=== PATIENT | female | born 1990 | race Caucasian/White ===

== ENCOUNTER → 2016-10-08 | Outpatient (CLI) | payer MEDICAID ==
--- NOTE | 2016-10-08 11:19 | US ---
EXAMINATION TYPE: US thyroid st tissue head/neck DATE OF EXAM: 10/08/2016 7:51 AM COMPARISON: NONE CLINICAL HISTORY: iodine deficiency, diffuse goiter. GLAND SIZE: Right Lobe: 4.9 x 1.1 x 1.5 cm Overall Parenchyma: homogenous Left Lobe: 4.5 x 1.1 x 1.3 cm Overall Parenchyma: homogeneous Isthmus Thickness: 0.2 cm NODULES RIGHT: # of nodules measured on right: 0 LEFT: # of nodules measured on left: 0 ISTHMUS: # of nodules measured in the isthmus: 0 TECHNOLOGIST IMPRESSION: Bilateral neck scanned, no abnormal lymphadenopathy noted. Thyroid gland is normal in size and homogeneous in echotexture without evidence of suspicious solid o r cystic nodule. IMPRESSION: Unremarkable study.
== END | disposition home or self-care (01) ==
LOC: RADUSWWP 07:36
PROVIDERS: ATTEND Family Medicine
DX: E01.0 Iodine-deficiency related diffuse (endemic) goiter (principal)
CPT/HCPCS: 76536

== ENCOUNTER → 2017-08-11 | Outpatient (CLI) | payer MEDICAID ==
[2017-08-11 09:24] LABS: CH 29.4; CHCM 34.5; HCT 41.3 % (34.0-46.0); HDW 2.43; MCH 29.1 pg (25.0-35.0); MCV 85.5 fL (80.0-100.0); RBC 4.83 m/uL (3.80-5.40); WBC 7.5 k/uL (3.8-10.6)
[2017-08-11 09:37] LABS: Glucose 91 mg/dL (74-99); Non-African American GFR(MDRD) >60 (>60 ml/min/1.73 sqM)
[2017-08-11 15:50] LABS: Treponemal Ab Non-Reactive (Non-Reactive)
[2017-08-12 06:54] LABS: Toxoplasma Antibody (IgG) <3.0 IU/mL (<7.2)
== END | disposition home or self-care (01) ==
LOC: LABWHC1 08:26
PROVIDERS: ATTEND Obstetrics & Gynecology
DX: Z34.81 Encounter for supervision of other normal pregnancy, first trimester (principal); Z3A.00 Weeks of gestation of pregnancy not specified
CPT/HCPCS: 36415; 82565; 82947; 85027; 86762; 86777; 86778; 86780; 86850; 86900; 86901; 87340

== ENCOUNTER → 2017-08-14 | Outpatient (CLI) | payer MEDICAID ==
--- NOTE | 2017-08-14 14:04 | US ---
EXAMINATION TYPE: US OB <= 14 wk fetus DATE OF EXAM: 08/14/2017 COMPARISON: NONE CLINICAL HISTORY: 27-year-old female Z36 Comfirm Dates. Patient has no complaints at this time. EXAM PERFORMED: Transabdominal (TA) FINDINGS: EXAM MEASUREMENTS: GESTATIONAL AGE / DATING Physician Established: (9 weeks/4 days) EDC: 03/15/2018 Dates by LMP: (9 weeks/4 days) EDC: 03/15/2018 Dates by First Scan: No prior Dates by Current Scan for: (9 weeks/6 days) EDC: 03/13/2018 MATERNAL ANATOMY Uterus: 10.1 x 5.8 x 7.8 cm Right Ovary: 2.3 x 1.1 x 2.2 cm Left Ovary: 2.5 x 2.5 x 2.9 cm Post CDS / Adnexa: wnl Presence of free fluid: No Presence of corpus luteal cyst: Left Ovary= 1.9 x 1.8 x 1.8 cm Presence of subchorionic bleed: No GESTATION / SURVEY CRL: 2.9 cm (9 weeks/6 days) MSD: wnl Yolk Sac (normal less than 6mm): 3mm Heart Rate: 165 bpm Rhythm: Normal IUP: Viable IUP SATELLITE DISH INSTALLER NOTES: Single, viable IUP/ No abnormality seen at this time IMPRESSION: 1. Single live intrauterine with estimated gestational age of 9 weeks 4 days by LMP. Curren t ultrasound biometry is concordant (9 weeks 6 days) by crown rump length. 2. Complete survey recommended at 18-20 weeks.
== END | disposition home or self-care (01) ==
LOC: RADUSWWP 13:32
PROVIDERS: ATTEND Obstetrics & Gynecology
DX: Z36.9 Encounter for antenatal screening, unspecified (principal); Z3A.09 9 weeks gestation of pregnancy
CPT/HCPCS: 76801

== ENCOUNTER → 2017-10-19 | Outpatient (CLI) | payer MEDICAID ==
--- NOTE | 2017-10-19 10:41 | US ---
EXAMINATION TYPE: US OB anatomy trans abd DATE OF EXAM: 10/19/2017 COMPARISON: 2017 HISTORY: O36.62X0 LARGE FOR DATES TECHNIQUE: Transabdominal (TA) EXAM MEASUREMENTS: GESTATIONAL AGE / DATING Physician Established: (18 weeks/6 days) EDC: 03/16/2018 Dates by LMP: (18 weeks/6 days) EDC: 03/16/2018 Dates by First Scan: (19 weeks/1 days) EDC: 03/14/2018 Dates by Current Scan for: (18 weeks/4 days) EDC: 03/18/2018 SURVEY IUP: Single PLACENTA: Anterior PREVIA: No previa ADAN: 11 cm Normal CERVICAL LENGTH (transabdominal: norm > 3.0cm): 3.4 cm BIOMETRY PRESENTATION: Breech LIE: Longitudinal BPD: 4.2 cm 18 weeks / 4 days HC: 15.7 cm 18 weeks / 4 days AC: 13.3 cm 18 weeks / 5 days FL: 2.8 cm 18 weeks / 4 days ESTIMATED WEIGHT IN GRAMS: 252 grams ESTIMATED WEIGHT IN LBS/OZ: 0 lbs. 9 oz. WEIGHT PERCENTAGE BASED ON ESTABLISHED DATE: 36 % HC/AC: 1.2 Normal FL/AC: 21 Normal HEART RATE: 158 bpm RHYTHM: Normal ANATOMY SEEN (within normal limits): * Lateral Vent (< 1 cm) 0.6 cm * Cisterna Magna (< 1.1 cm) 0.4 cm * Nuchal Fold (< 0.6 cm) 0.2 cm * Cerebellum (varies with age) 1.8 cm Choroid Plexus (bilateral) Midline Falx Cavus Septi Pellucidi Four Chamber Heart Outflow tracts: LVOT/RVOT Stomach Situs Nose / Lips Diaphragm Kidneys (bilateral) Bladder Cord Insert Three Vessel Cord Longitudinal Spine Transverse Spine Arms (bilateral) Legs (bilateral) Impressions: 1. Single intrauterine gestation estimated at 18 4 days gestation. Cardiac activity measures 158 bpm. Calculated EDC based on the current measurements is 03/18/2018.
== END | disposition home or self-care (01) ==
LOC: RADUSWWP 08:24
PROVIDERS: ATTEND Obstetrics & Gynecology
DX: O36.62X0 Maternal care for excessive fetal growth, second trimester, not applicable or unspecified (principal); Z3A.18 18 weeks gestation of pregnancy
CPT/HCPCS: 76811

== ENCOUNTER → 2017-12-04 | Outpatient (CLI) | payer MEDICAID ==
[2017-12-04 12:08] LABS: HCT 36.2 % (34.0-46.0); HGB 12.6 gm/dL (11.4-16.0); MCH 29.8 pg (25.0-35.0); MCHC 34.9 g/dL (31.0-37.0); MCV 85.5 fL (80.0-100.0); Platelet Count 206 k/uL (150-450); RBC 4.24 m/uL (3.80-5.40); RDW 13.8 % (11.5-15.5); WBC 8.5 k/uL (3.8-10.6)
== END | disposition home or self-care (01) ==
LOC: LABWHC1 10:43
PROVIDERS: ATTEND Obstetrics & Gynecology
DX: Z34.82 Encounter for supervision of other normal pregnancy, second trimester (principal); Z3A.00 Weeks of gestation of pregnancy not specified
CPT/HCPCS: 36415; 82950; 85027

== ENCOUNTER → 2018-02-10 | Outpatient (CLI) | payer MEDICAID ==
--- NOTE | 2018-02-10 10:33 | US ---
EXAMINATION TYPE: US OB anatomy transabd DATE OF EXAM: 02/10/2018 COMPARISON: US HISTORY: O36.63X0 large for dates 3rd trimester TECHNIQUE: Transvaginal (TV) and Transabdominal (TA) EXAM MEASUREMENTS: GESTATIONAL AGE / DATING Physician Established: (35 weeks/2 days) EDC: 03/15/2018 per patient HX today Dates by LMP: (35 weeks/1 day) EDC: 03/16/2018 Dates by First Scan: (35 weeks/3 days) EDC: 03/14/2018 Dates by Current Scan for: (34 weeks/4 days) EDC: 03/20/2018 SURVEY IUP: Single PLACENTA: Anterior; superior placental anechoic oval area could be venous castillo or fenestration and si ze = 1.2 x x1.0 x 0.9cm PREVIA: No previa ADAN: 30.4 cm Normal CERVICAL LENGTH (transabdominal: norm > 3.0cm): 3.5 cm BIOMETRY PRESENTATION: Vertex LIE: Longitudinal BPD: 8.4 cm 33 weeks / 6 days HC: 31.3 cm 35 weeks / 0 days AC: 30.4 cm 34 weeks / 2 days FL: 6.8 cm 34 weeks / 6 days ESTIMATED WEIGHT IN GRAMS: 2446.0 grams ESTIMATED WEIGHT IN LBS/OZ: 5 lbs. 13 oz. WEIGHT PERCENTAGE BASED ON ESTABLISHED DATE: 26.5 % HC/AC: 1.0 normal FL/AC: 22.3 normal HEART RATE: 152 bpm RHYTHM: Normal ANATOMY SEEN (within normal limits): * Lateral Vent (< 1 cm) 0.7 cm Choroid Plexus (bilateral) Midline Falx Cavus Septi Pellucidi Four Chamber Heart Outflow tracts: LVOT/RVOT Stomach Situs Diaphragm Kidneys (bilateral) Bladder Three Vessel Cord Arms (bilateral) ANATOMY NOT SEEN: due to age of gestation and position * Cisterna Magna (< 1.1 cm) not seen * Nuchal Fold (< 0.6 cm) cm * Cerebellum (varies with age) cm Nose / Lips Cord Insert Longitudinal Spine: S Spine due to location at maternal ribs Transverse Spine: S Spine due to location at maternal ribs Legs (bilateral) - opposite leg not seen due to crowding IMPRESSION:Single, live IUP,34 weeks/4 days, EDC: 03/20/2018, HR 152bpm
== END | disposition home or self-care (01) ==
LOC: RADUSWWP 08:15
PROVIDERS: ATTEND Obstetrics & Gynecology
DX: O36.63X0 Maternal care for excessive fetal growth, third trimester, not applicable or unspecified (principal); Z3A.34 34 weeks gestation of pregnancy
CPT/HCPCS: 76811

== ENCOUNTER 2018-03-13 19:50 | Inpatient (IN) | payer MEDICAID ==
[2018-03-13] MEDS ORDERED: TERBUTALINE 1 MG/ML VIAL SQ PRN (20:16)
[2018-03-13] MEDS ORDERED: LIDOCAINE 1% (PF) 10 MG/ML (30 ML SDV) SQ PRN (20:16)
[2018-03-13] MEDS ORDERED: CARBOPROST TROMETHAMINE 250 MCG/ML 1 ML AMP IM PRN (20:16)
[2018-03-13] MEDS ORDERED: METHYLERGONOVINE 0.2 MG/ML 1 ML AMP IM PRN (20:16)
[2018-03-13] MEDS ORDERED: OXYTOCIN 10 UNIT/ML 1 ML VIAL IM PRN (20:16)
[2018-03-13] MEDS ORDERED: LACTATED RINGERS 1,000 ML IV SCH (20:30)
[2018-03-13 20:31] LABS: Basophils % (A) 0 %; Eosinophils # (A) 0.2 k/uL (0-0.7); Eosinophils % (A) 2 %; HGB 14.8 gm/dL (11.4-16.0); Lymphocytes # (A) 1.7 k/uL (1.0-4.8); Lymphocytes % (A) 17 %; MCH 29.7 pg (25.0-35.0); MCHC 35.3 g/dL (31.0-37.0); MCV 84.3 fL (80.0-100.0); Mean Platelet Volume 8.2; Monocytes # (A) 0.6 k/uL (0-1.0); Monocytes % (A) 6 %; Neutrophils # (A) 7.5 k/uL (1.3-7.7); Neutrophils % (A) 73 %; Platelet Count 187 k/uL (150-450); RBC 4.98 m/uL (3.80-5.40); RDW 13.8 % (11.5-15.5); WBC 10.3 k/uL (3.8-10.6)
[2018-03-13] MEDS ORDERED: fentaNYL (PF) 50 MCG/ML 5 ML AMP ONE (20:36)
[2018-03-13] MEDS ORDERED: BUPIVACAINE (PF) 0.25% 30 ML VIAL ONE (20:36)
[2018-03-13] MEDS ORDERED: SODIUM CHLORIDE 0.9% 100 ML BAG ONE (20:36)
[2018-03-13] MEDS ORDERED: ROPIVACAINE 100 MG, fentaNYL (PF) 200 MCG in SODIUM CHLORIDE 0.9% 76 ML EPIDURAL ONE (20:55)
[2018-03-13] MEDS: LACTATED RINGERS 1,000 ML IV SCH (21:20)
[2018-03-13] MEDS ORDERED: WITCH HAZEL 1 EACH MED..PAD TOPICAL PRN (23:21)
[2018-03-13] MEDS ORDERED: diphenhydrAMINE 50 MG CAP PO PRN (23:21)
[2018-03-13] MEDS ORDERED: HYDROCORTISONE 2.5% RECTAL CREAM 30 GM TUBE RECTAL PRN (23:21)
[2018-03-13] MEDS ORDERED: LANOLIN CREAM 5 GM TUBE TOPICAL PRN (23:21)
[2018-03-13] MEDS ORDERED: BENZOCAINE/MENTHOL SPRAY 1 GM/SPRAY AEROSOL TOPICAL PRN (23:21)
[2018-03-13] MEDS ORDERED: diphenhydrAMINE 25 MG CAP PO PRN (23:21)
[2018-03-13] MEDS ORDERED: diphenhydrAMINE 50 MG/ML 1 ML VIAL IVP PRN ×2 (23:21)
[2018-03-13] MEDS ORDERED: SIMETHICONE 80 MG CHEWABLE PO PRN (23:21)
[2018-03-13] MEDS ORDERED: ZOLPIDEM 5 MG TAB PO PRN (23:21)
--- NOTE | 2018-03-13 23:24 | P.HPOB ---
History of Present Illness H&P Date: 03/13/18 Chief Complaint: Intrauterine at term: Active labor Syeda is a 27-year-old at 39 weeks gestation arise in active labor. Dilated to 6 cm. Artificial rupture membranes was performed and clear fluid is noted. Her Precis course otherwise has been unremarkable and she is feeling well at this time. Pertinent labs include O+ blood type Rh and it was negative , rubella immune, hepatitis B surface antigen and RPR were both negative as was groupie strep area she voices no complaints heart tones are in the 1 reason reactive and she shows a category 1 tracing Past Medical History Past Medical History: Thyroid Disorder Additional Past Medical History / Comment(s): hypothyroid- not medicated History of Any Multi-Drug Resistant Organisms: None Reported Past Surgical History: Tonsillectomy Past Anesthesia/Blood Transfusion Reactions: No Reported Reaction Past Psychological History: Anxiety Additional Psychological History / Comment(s): not currently medicated Smoking Status: Never smoker Past Alcohol Use History: None Reported Past Drug Use History: None Reported - Past Family History Mother Family Medical History: No Reported History Medications and Allergies Home Medications Medication Instructions Recorded Confirmed Type Pnv,Calcium 72/Iron/Folic Acid 1 tab PO DAILY 05/20/15 03/13/18 History [ Plus Tablet] Allergies Allergy/AdvReac Type Severity Reaction Status Date / Time No Known Allergies Allergy Verified 03/13/18 20:16 Exam Osteopathic Statement: *. No significant issues noted on an osteopathic structural exam other than those noted in the History and Physical/Consult. - Vital Signs Vital signs: Vital Signs Temp Pulse Resp BP Pulse Ox 03/13/18 20:24 97.2 F L 76 16 125/83 96 03/13/18 20:08 97.2 F L 76 16 125/83 96 Intake and Output 03/13/18 03/13/18 03/14/18 14:59 22:59 06:59 Intake Total 1000 Output Total 50 Balance 950 Intake: Intake, IV Titration 1000 Amount Lactated Ringers 1,000 ml 1000 @ 999 mls/hr IV .Q1H1M [facility] Rx#:[id number] Output: Urine 50 Other: Weight 83.007 kg - OBG Physical Exam Breast: both: normal (no masses) Abdomen: bowel sounds normal, no diffuse tenderness, no bruit present, no guarding noted, no hepatomegaly, no splenomegaly, no mass Vulva: both: normal Vagina: normal moisture, no discharge Cervix: no lesion, no discharge Uterus: normal size, normal contour Adnexa: both: normal Anus/Rectum: normal perianal skin, no rectal mass, no hemorrhoids, heme negative Results Result Diagrams: 03/13/18 20:25
--- NOTE | 2018-03-13 23:26 | P.PROBDLV ---
Vaginal Delivery Note - . Vaginal Delivery Note: Belle progressed to complete and pushing with spontaneous vaginal delivery of a viable female female over a secondary perineal laceration. Following delivery of the head anterior posterior shoulders were easily delivered with gentle downward and upward traction. Baby was delivered from left occiput anterior position. Once baby was fully delivered mouth nares were bulb suctioned and baby was placed on mother's abdomen where the umbilical cord was allowed to pulsate for 20 seconds prior to clamping cutting. Once this was accomplished nursery personnel was present to assume care. Placenta was then delivered intact and Pitocin was added to the IV. Second-degree perineal laceration was then repaired with 3-0 Vicryl in usual fashion following 1% Xylocaine for analgesia. scores and weight are pending, but both mother and baby appear stable following delivery.
[2018-03-13] MEDS ORDERED: OXYTOCIN 20 UNITS/1000 ML NS 1,000 ML IV SCH (23:45)
[2018-03-14] MEDS: IBUPROFEN 600 MG TAB PO PRN ×4 (02:11→23:44)
[2018-03-14] MEDS: LACTATED RINGERS 1,000 ML IV SCH (04:35)
[2018-03-14] MEDS: SENNOSIDES-DOCUSATE SODIUM 1 EACH TAB PO SCH (08:07)
--- NOTE | 2018-03-14 10:29 | P.PNOBGVD ---
Subjective - Subjective Principal diagnosis: day 1 Interval history: Seyda is doing very well day 1. She is involuting, voiding, and tolerating her diet. She voices no complaints. Patient reports: Reports appetite normal, Reports voiding normally, Reports pain well controlled, Reports ambulating normally : doing well Objective - Latest Vital Signs Latest vital signs: Vital Signs Temp Pulse Resp BP Pulse Ox 03/14/18 08:00 97.9 F 71 18 112/67 03/14/18 04:00 98.8 F 70 16 114/52 97 03/14/18 01:24 97.8 F 78 14 100/58 03/14/18 00:54 77 16 104/53 03/14/18 00:24 83 14 110/56 03/14/18 00:09 75 16 113/58 03/13/18 23:54 81 16 115/66 03/13/18 23:39 93 16 120/55 03/13/18 23:24 97.8 F 90 16 116/58 03/13/18 20:24 97.2 F L 76 16 125/83 96 03/13/18 20:08 97.2 F L 76 16 125/83 96 Intake and Output 03/13/18 03/14/18 03/14/18 22:59 06:59 14:59 Intake Total 1000 1250 Output Total 50 Balance 950 1250 Intake: Intake, IV Titration 1000 1250 Amount Lactated Ringers 1,000 ml 250 @ 125 mls/hr IV .Q8H [facility] Rx#:[id number] Lactated Ringers 1,000 ml 1000 @ 999 mls/hr IV .Q1H1M [facility] Rx#:[id number] Oxytocin 20 Units/1000 ml 1000 Ns 1,000 ml @ Per Protocol IV .Q0M [facility] Rx#: [id number] Output: Urine 50 Other: # Voids 1 Weight 83.007 kg - Exam Lungs: bilateral: normal Chest: Normal S1, Normal S2 Extremities: Present: normal Abdomen: Present: normal appearance, soft Uterus: Present: normal, firm
[2018-03-14] MEDS: ACETAMINOPHEN TAB 325 MG TAB PO PRN ×2 (13:09→20:04)
[2018-03-15] MEDS: SENNOSIDES-DOCUSATE SODIUM 1 EACH TAB PO SCH ×2 (01:15→09:14)
--- NOTE | 2018-03-15 07:32 | P.DS ---
Providers Date of admission: 03/13/18 20:07 Expected date of discharge: 03/15/18 Attending physician: Faina Daley Primary care physician: Stated None - Discharge Diagnosis(es) (1) Normal vaginal delivery Current Visit: No Status: Acute Hospital Course: Patient presented in active labor. She underwent normal vaginal delivery. Her course was uncomplicated. She'll be discharged home day # 2 in stable condition to follow-up with me in 6 weeks. Plan - Discharge Summary New Discharge Prescriptions: New Ibuprofen [Motrin] 600 mg PO Q6HR PRN #30 tab PRN Reason: Mild Pain Or Fever >= 100.5 No Action Pnv,Calcium 72/Iron/Folic Acid [ Plus Tablet] 1 tab PO DAILY Discharge Medication List Pnv,Calcium 72/Iron/Folic Acid [ Plus Tablet] 1 tab PO DAILY 05/20/15 [ History] Ibuprofen [Motrin] 600 mg PO Q6HR PRN #30 tab 03/15/18 [Rx] Follow up Appointment(s)/Referral(s): Faina Daley DO [Doctor of Osteopathic Medicine] - 6 Weeks Discharge Disposition: HOME SELF-CARE
[2018-03-15] MEDS: IBUPROFEN 600 MG TAB PO PRN (09:13)
[2018-03-15 09:46] VITALS: BP 107/72; PULSE 70; RESP 17; TEMP 97.8
== END 2018-03-15 11:40 | disposition home or self-care (01) | DRG 775 ==
LOC: FBPOP 19:50 → 4FBP 20:07
PROVIDERS: ADMIT Obstetrics & Gynecology; ATTEND Obstetrics & Gynecology
PROC: 0KQM0ZZ Repair Perineum Muscle, Open Approach (ICD-10-PCS; principal; 2018-03-13)
PROC: 10E0XZZ Delivery of Products of Conception, External Approach (ICD-10-PCS; 2018-03-13)
PROC: 10907ZC Drainage of Amniotic Fluid, Therapeutic from Products of Conception, Via Natural or Artificial Opening (ICD-10-PCS; 2018-03-13)
PROC: 00HU33Z Insertion of Infusion Device into Spinal Canal, Percutaneous Approach (ICD-10-PCS; 2018-03-13)
PROC: 3E0R3NZ Introduction of Analgesics, Hypnotics, Sedatives into Spinal Canal, Percutaneous Approach (ICD-10-PCS; 2018-03-13)
DX: O70.1 Second degree perineal laceration during delivery (principal); Z37.0 Single live birth; Z3A.39 39 weeks gestation of pregnancy
CPT/HCPCS: 85025

== ENCOUNTER → 2018-03-31 | Outpatient (CLI) | payer MEDICAID ==
--- NOTE | 2018-03-31 18:19 | US ---
EXAMINATION TYPE: US thyroid st tissue head/neck DATE OF EXAM: 03/31/2018 COMPARISON: NONE CLINICAL HISTORY: E06.3 AUTOIMMUNE THYROIDITIS. Thyroiditis GLAND SIZE: Right Lobe: 4.8 x 1.4 x 1.7 cm Overall Parenchyma: homogenous Left Lobe: 4.1 x 1.1 x 1.5 cm Overall Parenchyma: homogeneous Isthmus Thickness: 0.3 cm NODULES RIGHT: # of nodules measured on right: 0 LEFT: # of nodules measured on left: 0 ISTHMUS: # of nodules measured in the isthmus: 0 Bilateral neck scanned, no evidence of lymphadenopathy. Hypoechoic area inferior left = 0.6 x 0.5 x 0.5cm, difficult to distinguish if within thyroid gland v s. adjacent to IMPRESSION: Negative thyroid sonogram. No discrete thyroid mass seen.
== END | disposition home or self-care (01) ==
LOC: RADUSWWP 16:55
PROVIDERS: ATTEND Family Medicine
DX: E06.3 Autoimmune thyroiditis (principal)
CPT/HCPCS: 76536

== ENCOUNTER 2019-07-02 18:07 | Emergency (ER) | payer BC, MEDICAID ==
[2019-07-02 18:51] VITALS: RESP 18; TEMP 97.5
[2019-07-02 19:34] LABS: Basophils # (A) 0.1 k/uL (0-0.2); Basophils % (A) 1 %; Eosinophils # (A) 0.1 k/uL (0-0.7); Eosinophils % (A) 1 %; HCT 41.8 % (34.0-46.0); HGB 14.5 gm/dL (11.4-16.0); Lymphocytes # (A) 1.3 k/uL (1.0-4.8); Lymphocytes % (A) 13 %; MCH 29.4 pg (25.0-35.0); MCHC 34.7 g/dL (31.0-37.0); MCV 84.6 fL (80.0-100.0); Mean Platelet Volume 6.4; Monocytes # (A) 0.4 k/uL (0-1.0); Monocytes % (A) 4 %; Neutrophils % (A) 80 %; Platelet Count 236 k/uL (150-450); RBC 4.93 m/uL (3.80-5.40)
--- NOTE | 2019-07-02 19:44 | ED ---
Dizziness HPI - General Source: patient Mode of arrival: wheelchair Limitations: no limitations <Shan Saeed - Last Filed: 07/02/19 20:41> <Juana Chanel - Last Filed: 07/02/19 23:15> - General Chief Complaint: Dizziness Stated Complaint: Light headed, Blurred Vision Time Seen by Provider: 07/02/19 18:56 - History of Present Illness Initial Comments: Patient is a 29-year-old female with history andree thyroiditis is presenting to emergency Department with a chief complaint of visual disturbances. Patient reports her symptoms initially started 1 month ago when she was walking to the store and noticed a gradual onset of visual disturbances. Patient reports "curtains falling from both side and changing shapes. Patient also reports she developed a headache immediately after that episode. Patient reports she had a few intermittent similar instances however there are very mild. Patient had an evaluation by an arcade games mechanic who informed her that everything was negative. Patient reports today she developed sudden onset of similar visual changes although only noted in the left eye. Patient reports "there is constant moving objects." Patient also reports a right-sided headache that is somewhat similar to her migraines. Patient also reports photosensitivity but denies any nausea or vomiting. Patient does report a near syncopal episode today. Patient has no other significant medical history. Patient reports that her mom is diagnosed with epilepsy. Patient reports tingling in bilateral feet and the left hand. Patient denies any muscle weakness. Patient denies lightheadedness, chest pain, shortness of breath. (Shan Saeed) - Related Data Home Medications Medication Instructions Recorded Confirmed Cytozyme Ad 1 tab PO TID 07/02/19 07/02/19 Ibuprofen [Motrin Ib] 200 mg PO Q6HR PRN 07/02/19 07/02/19 Linum B-6 1 tab PO TID 07/02/19 07/02/19 Chadd-Stim 1 tab PO TID 07/02/19 07/02/19 Thystorim 1 tab PO TID 07/02/19 07/02/19 Allergies Allergy/AdvReac Type Severity Reaction Status Date / Time No Known Allergies Allergy Verified 07/02/19 19:33 Review of Systems ROS Other: All systems not noted in ROS Statement are negative. <Shan Saeed - Last Filed: 07/02/19 20:41> ROS Other: All systems not noted in ROS Statement are negative. <Juana Chanel - Last Filed: 07/02/19 23:15> ROS Statement: Those systems with pertinent positive or pertinent negative responses have been documented in the HPI. Past Medical History Past Medical History: Thyroid Disorder Additional Past Medical History / Comment(s): hypothyroid- not medicated History of Any Multi-Drug Resistant Organisms: None Reported Past Surgical History: Tonsillectomy Past Anesthesia/Blood Transfusion Reactions: No Reported Reaction Past Psychological History: Anxiety Smoking Status: Never smoker Past Alcohol Use History: Occasional Past Drug Use History: None Reported - Past Family History Mother Family Medical History: No Reported History <Shan Saeed - Last Filed: 07/02/19 20:41> General Exam Limitations: no limitations General appearance: alert, in no apparent distress Head exam: Present: atraumatic, normocephalic, normal inspection Eye exam: Present: normal appearance, PERRL, EOMI. Absent: scleral icterus, conjunctival injection, nystagmus Pupils: Present: normal accommodation ENT exam: Present: normal exam, normal oropharynx, mucous membranes moist, TM's normal bilaterally, normal external ear exam Neck exam: Present: normal inspection, full ROM Respiratory exam: Present: normal lung sounds bilaterally Extremities exam: Present: normal inspection, full ROM, normal capillary refill, other (+2 ulnar and radial pulses bilaterally.) Back exam: Present: normal inspection, full ROM Neurological exam: Present: alert, oriented X3, CN II-XII intact, normal gait, reflexes normal, other (Patient neurovascularly intact. Strength 5 out of 5 bilateral upper and lower extremities) Psychiatric exam: Present: normal affect, normal mood Skin exam: Present: warm, intact, normal color. Absent: rash <Shan Saeed - Last Filed: 07/02/19 20:41> Course Vital Signs 07/02/19 07/02/19 07/02/19 18:48 19:25 20:00 Temperature 97.5 F L Pulse Rate 86 78 74 Respiratory 18 18 16 Rate Blood Pressure 116/72 107/66 O2 Sat by Pulse 100 97 99 Oximetry 07/02/19 07/02/19 07/02/19 21:00 22:00 22:28 Temperature Pulse Rate 76 78 76 Respiratory 18 20 18 Rate Blood Pressure 90/63 101/62 103/48 O2 Sat by Pulse 96 98 99 Oximetry Medical Decision Making - Lab Data Result diagrams: 07/02/19 19:18 07/02/19 19:18 <Shan Saeed - Last Filed: 07/02/19 20:41> - Lab Data Result diagrams: 07/02/19 19:18 07/02/19 19:18 <Juana Chanel - Last Filed: 07/02/19 23:15> - Medical Decision Making Patient is a 29-year-old female with history of thyroiditis is presenting to the emergency department with a chief complaint of dizziness and visual disturbances. Patient reports her initial symptoms started approximately one month ago with curtains coming on bilateral sides along with white spots. Patient had immediately developed a headache yesterday. Patient had no specific symptoms since then. Patient also had an evaluation by an arcade games mechanic there was unremarkable. Patient reports her symptoms today started on the left side and it appears that everything is in constant motion. Patient reports moving shapes. Patient also reports bilateral tingling in the feet and left hand. On reevaluation patient reports the tingling, dizziness and visual disturbances at the site. But now she only has a right-sided headache. Patient doesn't have any nausea or vomiting but does have light photosensitivity. I suspect the patient to have a migraine with aura based on the description of her symptoms. Labs were unremarkable. Thyroid levels pending. CT of the brain pending. At this point care will be transferred to Dr. Chanel. (Shan Saeed) Patient care was signed out to me by Shan ORTEGA. Patient presented with visual changes followed by a severe migraine. Labs are unremarkable head CT was pending at time of sign out. Head CT resulted with no acute findings patient was given a migraine cocktail. Upon reevaluation patient reported significant improvement in her headache and is feeling much better at this time. At this time patient is comfortable with the plan for discharge home with diagnosis of migraine with aura. I did discuss with the patient any relation of her migraines to menses her last migraine occurred 3 days prior to her menses this migraine is midcycle so she does not believe these are menstrual migraines. Patient doesn't have a significant history of migraines but will follow up with her primary care physician for any recurrence. Pertaining care were answered return parameters were discussed patient was discharged home in stable condition. (Juana Chanel) - Lab Data Lab Results 07/02/19 07/02/19 07/02/19 Range/Units 19:18 19:18 19:18 WBC 10.0 (3.8-10.6) k/uL RBC 4.93 (3.80-5.40) m/uL Hgb 14.5 (11.4-16.0) gm/dL Hct 41.8 (34.0-46.0) % MCV 84.6 (80.0-100.0) fL MCH 29.4 (25.0-35.0) pg MCHC 34.7 (31.0-37.0) g/dL RDW 12.0 (11.5-15.5) % Plt Count 236 (150-450) k/uL Neutrophils % 80 % Lymphocytes % 13 % Monocytes % 4 % Eosinophils % 1 % Basophils % 1 % Neutrophils # 8.0 H (1.3-7.7) k/uL Lymphocytes # 1.3 (1.0-4.8) k/uL Monocytes # 0.4 (0-1.0) k/uL Eosinophils # 0.1 (0-0.7) k/uL Basophils # 0.1 (0-0.2) k/uL Sodium 139 (137-145) mmol/L Potassium 3.9 (3.5-5.1) mmol/L Chloride 104 (98-107) mmol/L Carbon Dioxide 23 (22-30) mmol/L Anion Gap 12 mmol/L BUN 11 (7-17) mg/dL Creatinine 0.80 (0.52-1.04) mg/dL Est GFR (CKD-EPI)AfAm >90 (>60 ml/min/1.73 sqM) Est GFR (CKD-EPI)NonAf >90 (>60 ml/min/1.73 sqM) Glucose 102 H (74-99) mg/dL Calcium 9.9 (8.4-10.2) mg/dL Total Bilirubin 0.4 (0.2-1.3) mg/dL AST 24 (14-36) U/L ALT 20 (9-52) U/L Alkaline Phosphatase 75 (38-126) U/L Total Protein 7.6 (6.3-8.2) g/dL Albumin 4.6 (3.5-5.0) g/dL TSH 1.680 (0.465-4.680) mIU/L Urine Color Yellow Urine Appearance Clear (Clear) Urine pH 5.5 (5.0-8.0) Ur Specific [place] 1.017 (1.001-1.035) Urine Protein Negative (Negative) Urine Glucose (UA) Negative (Negative) Urine Ketones Negative (Negative) Urine Blood Negative (Negative) Urine Nitrite Negative (Negative) Urine Bilirubin Negative (Negative) Urine Urobilinogen <2.0 (<2.0) mg/dL Ur Leukocyte Esterase Negative (Negative) Disposition Is patient prescribed a controlled substance at d/c from ED?: No Time of Disposition: 20:42 <Shan Saeed - Last Filed: 07/02/19 20:41> Is patient prescribed a controlled substance at d/c from ED?: No <Juana Chanel - Last Filed: 07/02/19 23:15> Clinical Impression: Migraine with aura Disposition: HOME SELF-CARE Condition: Stable Instructions (If sedation given, give patient instructions): Dizziness (ED) Additional Instructions: Please follow up with neurology. Please return to emergency department if symptoms worsen. Referrals: Morelia Medeiros MD [Primary Care Provider] - 1-2 days Farideh Haynes MD [STAFF PHYSICIAN] - 1-2 days
[2019-07-02 19:51] LABS: ALT 20 U/L (9-52); AST 24 U/L (14-36); African American GFR (CKD) >90 (>60 ml/min/1.73 sqM); Albumin 4.6 g/dL (3.5-5.0); Alkaline Phosphatase 75 U/L (38-126); Anion Gap 12 mmol/L; Blood Urea Nitrogen 11 mg/dL (7-17); Calcium 9.9 mg/dL (8.4-10.2); Carbon Dioxide 23 mmol/L (22-30); Chloride 104 mmol/L (98-107); Glucose 102 mg/dL (74-99); Potassium 3.9 mmol/L (3.5-5.1); Sodium 139 mmol/L (137-145); Total Bilirubin 0.4 mg/dL (0.2-1.3); Total Protein 7.6 g/dL (6.3-8.2)
[2019-07-02 20:10] LABS: Appearance,Urine Clear (Clear); Bilirubin,Urine Negative (Negative); Blood,Urine Negative (Negative); Color,Urine Yellow; Glucose,Urine (UA) Negative (Negative); Ketones,Urine Negative (Negative); Leukocyte Esterase,Urine Negative (Negative); Nitrite,Urine Negative (Negative); PH, Urine 5.5 (5.0-8.0); Protein,Urine Negative (Negative); Specific Gravity,Urine 1.017 (1.001-1.035); Urobilinogen,Urine <2.0 mg/dL (<2.0)
--- NOTE | 2019-07-02 21:00 | CT ---
EXAMINATION TYPE: CT brain wo con DATE OF EXAM: 07/02/2019 COMPARISON: None HISTORY: headache, dizziness TECHNIQUE: Axial CT images of the head without contrast. Bone windows and sagittal and coronal reform ats were reviewed. CT DLP: 1080.4 mGycm Automated exposure control for dose reduction was used. FINDINGS: No acute intracranial hemorrhage. Esquivel-white differentiation is maintained. Normal size and configuration of the ventricular system. Patent basal cisterns. No extra-axial fluid collections. No depressed or displaced calvarial fracture. Imaged paranasal sinuses and temporal bone structures a re well aerated. IMPRESSION: No acute intracranial abnormality.
[2019-07-02] MEDS ORDERED: KETOROLAC 30 MG/ML 1 ML VIAL IVP STA (22:24)
[2019-07-02] MEDS ORDERED: diphenhydrAMINE 50 MG/ML 1 ML VIAL IVP STA (22:24)
[2019-07-02] MEDS ORDERED: METOCLOPRAMIDE 5 MG/ML 2 ML VIAL IVP STA (22:24)
[2019-07-02 22:29] VITALS: BP 103/48; PULSE 76
== END 2019-07-02 23:39 | disposition home or self-care (01) ==
LOC: EC 18:07
DX: G43.109 Migraine with aura, not intractable, without status migrainosus (principal); E06.9 Thyroiditis, unspecified; E03.9 Hypothyroidism, unspecified; Z79.890 Hormone replacement therapy; Z79.899 Other long term (current) drug therapy; Z90.89 Acquired absence of other organs
CPT/HCPCS: 36415; 80053; 84443; 85025; 81003; 70450; 99284; 96374; 96375 ×2; J1200; J2765; J1885

== ENCOUNTER → 2019-07-13 | Outpatient (CLI) | payer BC ==
[2019-07-13 10:28] LABS: Basophils % (A) 0 %; Eosinophils # (A) 0.1 k/uL (0-0.7); Eosinophils % (A) 2 %; HCT 42.2 % (34.0-46.0); HGB 14.7 gm/dL (11.4-16.0); Lymphocytes # (A) 1.6 k/uL (1.0-4.8); Lymphocytes % (A) 22 %; MCH 29.5 pg (25.0-35.0); MCHC 34.7 g/dL (31.0-37.0); Mean Platelet Volume 6.4; Monocytes # (A) 0.3 k/uL (0-1.0); Monocytes % (A) 4 %; Neutrophils # (A) 5.2 k/uL (1.3-7.7); Neutrophils % (A) 71 %; Platelet Count 266 k/uL (150-450); RBC 4.97 m/uL (3.80-5.40); RDW 12.2 % (11.5-15.5); WBC 7.4 k/uL (3.8-10.6)
[2019-07-13 12:41] LABS: Erythrocyte Sedimentation Rate 15 mm/hr (0-20)
[2019-07-13 16:24] LABS: Cyclic Citrull Pep IgG Unit 0.6 U/mL; Cyclic Citrullinated Pep IgG NEGATIVE (NEGATIVE)
[2019-07-13 16:59] LABS: Protein, Total 6.9 g/dL (6.2-8.2)
[2019-07-14 11:20] LABS: Smooth Muscle Antibody 9 UNITS (<20)
[2019-07-14 11:53] LABS: Thyroid Stim Immun Quant <0.10 IU/L (<0.10)
[2019-07-14 13:44] LABS: Albumin 4.08 g/dL (3.80-4.90); Gamma Globulin 0.89 g/dL (0.70-1.50)
== END | disposition home or self-care (01) ==
LOC: LABWHC1 09:15
PROVIDERS: ATTEND Family Medicine
DX: G43.B0 Ophthalmoplegic migraine, not intractable (principal); E04.9 Nontoxic goiter, unspecified
CPT/HCPCS: 36415; 82607; 83516; 84165; 84207; 84439; 84445; 84480; 85025; 85652; 86038; 86200; 86618

== ENCOUNTER → 2019-07-17 | Outpatient (CLI) | payer BC ==
--- NOTE | 2019-07-17 10:35 | MR ---
EXAMINATION TYPE: MR brain wo/w con DATE OF EXAM: 07/17/2019 10:21 AM COMPARISON: NONE HISTORY: Ophthalmoplegic migraine, not intractable TECHNIQUE: Multiplanar, multiecho imaging of the brain was obtained with and without intravenous adm inistration of 7 mL intravenous Gadavist. FINDINGS: Midline structures are unremarkable. There is a normal craniocervical junction. Echoplanar diffusion is normal. There are normal vascular flow voids. The orbits have a normal appearance. There is no evidence of a CP angle mass lesion. There is a solitary subcortical lesion seen only in the [facility] dataset and measuring 4 mm of questiona ble etiology and significance. There is no mass effect, midline shift or intracranial blood. Following the intravenous administration of gadolinium, I do not see evidence of abnormal enhancement . IMPRESSION: 1. NO ACUTE INTRACRANIAL ABNORMALITY. 2. SOLITARY UBO ON THE LEFT WHICH IS ALSO QUESTIONABLE ETIOLOGY AND SIGNIFICANCE. THIS MAY BE BASED O N THE PATIENT'S MIGRAINE HEADACHE. OTHER FORMS OF DEMYELINATION ARE NOT EXCLUDED.
== END | disposition home or self-care (01) ==
LOC: RADMRIMAIN 09:38
PROVIDERS: ATTEND Family Medicine
DX: G43.B0 Ophthalmoplegic migraine, not intractable (principal)
CPT/HCPCS: 70553; A9585

== ENCOUNTER → 2019-07-22 | Outpatient (CLI) | payer BC ==
--- NOTE | 2019-07-22 10:26 | US ---
EXAMINATION TYPE: US thyroid st tissue head/neck DATE OF EXAM: 07/22/2019 COMPARISON: Multiple US. Latest = 03/31/18 CLINICAL HISTORY: E04.9 Goiter. GLAND SIZE: Right Lobe: 4.4 x 1.4 x 1.1 cm Overall Parenchyma: homogenous Left Lobe: 4.4 x 1.2 x 1.2 cm Overall Parenchyma: homogeneous Isthmus Thickness: 0.3 cm NODULES RIGHT: # of nodules measured on right: 0 LEFT: # of nodules measured on left: hypoechoic area near left lower lobe = 0.6 x 0.5 x 0.3 cm se en again. This may be located within the left within lobe or adjacent to it. ISTHMUS: # of nodules measured in the isthmus: 0 Bilateral neck scanned, no evidence of lymphadenopathy. IMPRESSION: There is redemonstration of a stable-appearing 0.6 x 0.5 cm nodule that is difficult to d istinguish if this is located at the posterior aspect of the left lower pole the thyroid gland or ext ernal, possible parathyroid adenoma. Correlate with serum laboratory values. If there is further clin ical suspicion nuclear medicine parathyroid scan could be performed.
== END | disposition home or self-care (01) ==
LOC: RADUSWWP 07:41
PROVIDERS: ATTEND Family Medicine
DX: E04.1 Nontoxic single thyroid nodule (principal)
CPT/HCPCS: 76536

== ENCOUNTER → 2020-07-04 | Outpatient (CLI) | payer BC ==
--- NOTE | 2020-07-04 17:00 | US ---
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 Follow up nodule GLAND SIZE: Right Lobe: 4.9 x 1.5 x 1.4 cm Overall Parenchyma: homogenous Left Lobe: 4.6 x 1.3 x 1.2 cm Overall Parenchyma: homogeneous Isthmus Thickness: 0.3 cm NODULES RIGHT: # of nodules measured on right: 0 LEFT: # of nodules measured on left: 1 1. 0.5 X 0.4 x 0.4 cm hypoechoic solid nodule at the inferior aspect of the lower pole with well-de fined margins. This nodule is tall as wide and shows intranodular vascularity. No echogenic foci. Prior size: 0.6 x 0.5 x 0.3 cm ISTHMUS: # of nodules measured in the isthmus: 0 Bilateral neck scanned, no evidence of lymphadenopathy. IMPRESSION: Unchanged 6 mm nodule at the inferior aspect of the left thyroid lower pole, which may be related to the thyroid gland versus parathyroid.
== END | disposition home or self-care (01) ==
LOC: RADUSWWP 08:28
PROVIDERS: ATTEND Family Medicine
DX: E04.1 Nontoxic single thyroid nodule (principal)
CPT/HCPCS: 76536

== ENCOUNTER → 2020-09-04 | Outpatient (CLI) | payer BC ==
--- NOTE | 2020-09-04 17:34 | MR ---
EXAMINATION TYPE: MR brain wo/w con DATE OF EXAM: 09/04/2020 COMPARISON: MRI brain July 17, 2019 HISTORY: Migraines, lesion. Follow up from prior MRI TECHNIQUE: Multiplanar, multisequence images of the brain and brainstem is performed without and with IV contras t, utilizing 7.5 mL intravenous Gadavist gadolinium contrast is administered intravenously. Demyelin ating disease protocol with additional Sagittal Flair sequence performed. FINDINGS: T2 Lesions Present : Yes Approximate Number of Lesions: 2 Locations Identified : Tiny scattered Size of Reference Lesion(s): 1. Stable 2 to 3 mm posterior left frontal lesion axial image 20 and sagittal image 9. Enhancing Lesion(s) Present: No Change from Prior: Stable Diffusion weighted images demonstrate no evidence of a recent infarct or other diffusion abnormality. There is no worrisome extra-axial fluid collection. The ventricular system and cisternal spaces ar e normal in size and appearance. The brain volume is age appropriate. Midline structures demonstrate normal morphology. The craniocervical junction appears within normal limits. Post contrast images demonstrate no abnormal enhancement. The dural venous sinuses appear pa tent. The visualized sinuses are clear and the globes are intact. IMPRESSION: Minimal nonspecific white matter changes are stable. Findings could be on the basis of al tered vascular mechanics related to products of migraine headaches. No new or enhancing lesions.
== END | disposition home or self-care (01) ==
LOC: RADMRIMAIN 16:07
PROVIDERS: ATTEND Psychiatry & Neurology Neurology
DX: R90.82 White matter disease, unspecified (principal)
CPT/HCPCS: 70553; A9585

== ENCOUNTER 2021-07-26 19:09 | Observation (INO) | payer BC ==
--- NOTE | 2021-07-26 20:53 | XR ---
EXAMINATION TYPE: XR KUB DATE OF EXAM: 07/26/2021 COMPARISON: NONE HISTORY: 31 years Female. STUDY INDICATION GIVEN: ABD pain . TECHNIQUE: Upright abdominal radiograph IMPRESSION: Nonobstructive bowel gas pattern. Mild amount of stool burden. No abnormal calcifications or organomegaly seen. No pneumoperitoneum or pneumatosis appreciated. No significant osseous abnormalities. Minimal lung base atelectasis.
[2021-07-26 21:28] LABS: Appearance,Urine Clear (Clear); Bilirubin,Urine Negative (Negative); Blood,Urine Negative (Negative); Color,Urine Yellow; Glucose,Urine (UA) Negative (Negative); Ketones,Urine Negative (Negative); Leukocyte Esterase,Urine Negative (Negative); Nitrite,Urine Negative (Negative); PH, Urine 5.5 (5.0-8.0); Protein,Urine Negative (Negative); Specific Gravity,Urine 1.023 (1.001-1.035); Urobilinogen,Urine <2.0 mg/dL (<2.0)
[2021-07-26] MEDS ORDERED: SODIUM CHLORIDE 0.9% 1,000 ML IV STA (21:38)
[2021-07-26] MEDS ORDERED: HYDROmorphone 0.5 MG/0.5 ML SYRINGE IVP STA (21:38)
[2021-07-26] MEDS ORDERED: ONDANSETRON 4 MG/2 ML VIAL IVP STA (21:38)
[2021-07-26 22:25] LABS: Basophils % (A) 0 %; Eosinophils # (A) 0.3 k/uL (0-0.7); Eosinophils % (A) 3 %; HCT 40.9 % (34.0-46.0); HGB 13.9 gm/dL (11.4-16.0); Lymphocytes % (A) 23 %; MCH 28.8 pg (25.0-35.0); MCHC 33.9 g/dL (31.0-37.0); Mean Platelet Volume 7.7; Monocytes # (A) 0.4 k/uL (0-1.0); Monocytes % (A) 5 %; Neutrophils # (A) 5.8 k/uL (1.3-7.7); Neutrophils % (A) 67 %; Platelet Count 239 k/uL (150-450); RBC 4.81 m/uL (3.80-5.40); RDW 12.3 % (11.5-15.5); WBC 8.7 k/uL (3.8-10.6)
[2021-07-26 22:40] LABS: ALT 13 U/L (4-34); AST 21 U/L (14-36); African American GFR (CKD) >90 (>60 ml/min/1.73 sqM); Albumin 4.3 g/dL (3.5-5.0); Alkaline Phosphatase 73 U/L (38-126); Anion Gap 10 mmol/L; Blood Urea Nitrogen 17 mg/dL (7-17); Calcium 9.7 mg/dL (8.4-10.2); Carbon Dioxide 25 mmol/L (22-30); Chloride 103 mmol/L (98-107); Glucose 98 mg/dL (74-99); Lipase 85 U/L (23-300); Non-African American GFR(CKD) 86 (>60 ml/min/1.73 sqM); Potassium 3.8 mmol/L (3.5-5.1); Sodium 138 mmol/L (137-145); Total Bilirubin 0.2 mg/dL (0.2-1.3); Total Protein 7.3 g/dL (6.3-8.2)
--- NOTE | 2021-07-26 22:44 | CT ---
EXAMINATION TYPE: CT abdomen pelvis w con DATE OF EXAM: 07/26/2021 COMPARISON: None HISTORY: RLQ pain CT DLP: 1113.7 mGycm Automated exposure control for dose reduction was used. CONTRAST: Performed with IV Contrast, patient injected with 100 mL of Isovue 370. Images obtained from the diaphragm to the floor the pelvis with IV contrast. The lung bases are clear. There is no pleural effusion. Heart size is normal. There is no pericardial effusion. Liver spleen stomach pancreas appear intact. The bile ducts are not dilated. All bladder is contracte d. There is no adrenal mass. Kidneys show satisfactory contrast opacification. There is no hydronephrosi s. Delayed images show normal renal excretion. There is no retroperitoneal adenopathy. Bladder disten ds smoothly. There is no inguinal hernia. Uterus is anteverted. There is no pelvic mass. There is no free fluid in the pelvis. There is no mesenteric edema. There is thickened appendix that measures 9.5 mm. No surrounding inflam matory process seen however. There is no evidence of a bowel obstruction. Lumbar vertebra have normal alignment. There is no compr ession fracture. Posterior elements are intact. Bony pelvis is intact. The hip joints are intact. IMPRESSION: There is thickened appendix. This is somewhat suspicious for appendicitis. No pelvic mass.
[2021-07-26] MEDS ORDERED: ONDANSETRON 4 MG/2 ML VIAL IVP PRN (23:45)
[2021-07-26] MEDS ORDERED: NALOXONE 0.4 MG/ML 1 ML VIAL IV PRN (23:45)
[2021-07-26] MEDS ORDERED: PIPERACILLIN-TAZOBACTAM 3.375 GM in SODIUM CHLORIDE 0.9% 100 ML IVPB STA (23:45)
--- NOTE | 2021-07-26 23:46 | ED ---
Abdominal Pain HPI - General Chief Complaint: Abdominal Pain Stated Complaint: Abd Pain Time Seen by Provider: 07/26/21 21:09 Source: patient Mode of arrival: ambulatory - History of Present Illness Initial Comments: 31 year-old female patient presents to the emergency department for evaluation of right lower quadrant abdominal pain. Patient states pain started yesterday as a band around her mid abdomen worse over her belly button. States she was very nauseated yesterday. States today the pain has migrated down to the right lower quadrant. States she has been very nauseated with no appetite throughout the day today. States she did eat dinner this evening and centimeters symptoms much worse. She denies any constipation or diarrhea. Denies any hematuria, dysuria, urinary frequency, urinary urgency. States there is possibility of . Report elevated temperature around 99F. Denies history of abdominal surgery. Denies any abnormal vaginal bleeding or discharge. - Related Data Home Medications Medication Instructions Recorded Confirmed Escitalopram [Lexapro] 20 mg PO DAILY 07/26/21 07/26/21 Propranolol HCl [Propranolol HCl 60 mg PO DAILY 07/26/21 07/26/21 ER] Allergies Allergy/AdvReac Type Severity Reaction Status Date / Time No Known Allergies Allergy Verified 07/26/21 22:09 Review of Systems ROS Statement: Those systems with pertinent positive or pertinent negative responses have been documented in the HPI. ROS Other: All systems not noted in ROS Statement are negative. Past Medical History Past Medical History: Thyroid Disorder Additional Past Medical History / Comment(s): hypothyroid- not medicated History of Any Multi-Drug Resistant Organisms: None Reported Past Surgical History: Tonsillectomy Past Anesthesia/Blood Transfusion Reactions: No Reported Reaction Past Psychological History: Anxiety, Depression Smoking Status: Never smoker Past Alcohol Use History: Occasional Past Drug Use History: None Reported - Past Family History Mother Family Medical History: No Reported History General Exam General appearance: alert, in no apparent distress, other (This is a well- developed, well-nourished adult female patient in no acute distress. ) Eye exam: Present: normal appearance, PERRL, EOMI. Absent: scleral icterus, conjunctival injection, periorbital swelling ENT exam: Present: normal exam, normal oropharynx, mucous membranes moist Respiratory exam: Present: normal lung sounds bilaterally. Absent: respiratory distress, wheezes, rales, rhonchi, stridor Cardiovascular Exam: Present: regular rate, normal rhythm, normal heart sounds. Absent: systolic murmur, diastolic murmur, rubs, gallop, clicks GI/Abdominal exam: Present: soft, tenderness (Significant right lower quadrant tenderness. Mild tenderness right upper quadrant, suprapubic.), normal bowel sounds. Absent: distended, guarding, rebound, rigid Neurological exam: Present: alert, oriented X3, CN II-XII intact Psychiatric exam: Present: normal affect, normal mood Skin exam: Present: warm, dry, intact, normal color. Absent: rash Course Vital Signs 07/26/21 19:57 Temperature 98.7 F Pulse Rate 73 Respiratory 2 L Rate Blood Pressure 101/68 O2 Sat by Pulse 98 Oximetry Medical Decision Making - Medical Decision Making 31-year-old female patient presents to the emergency department today for evaluation of right lower quadrant abdominal pain. She reports nausea with lack of appetite. Physical examination did reveal right lower quadrant tenderness, tenderness right upper quadrant suprapubic as well. She is afebrile with normal vital signs. Labs reviewed and are unremarkable. CT abdomen and pelvis was obtained and did show evidence for thickened appendix consistent with appendicitis. There were no inflammatory changes surrounding. I did discuss t he case with on-call surgeon Dr. Barahona. Patient was given option for antibiotics and outpatient follow up vs admission for surgery tomorrow. She opted for admission with surgery. She was started on Zosyn. Pain medication nausea medication provided. Case discussed with my attending Dr. Fischer. - Lab Data Result diagrams: 07/26/21 22:12 07/26/21 22:12 Lab Results 07/26/21 07/26/21 07/26/21 Range/Units 20:27 20:27 22:12 WBC 8.7 (3.8-10.6) k/uL RBC 4.81 (3.80-5.40) m/uL Hgb 13.9 (11.4-16.0) gm/dL Hct 40.9 (34.0-46.0) % MCV 85.0 (80.0-100.0) fL MCH 28.8 (25.0-35.0) pg MCHC 33.9 (31.0-37.0) g/dL RDW 12.3 (11.5-15.5) % Plt Count 239 (150-450) k/uL MPV 7.7 Neutrophils % 67 % Lymphocytes % 23 % Monocytes % 5 % Eosinophils % 3 % Basophils % 0 % Neutrophils # 5.8 (1.3-7.7) k/uL Lymphocytes # 2.0 (1.0-4.8) k/uL Monocytes # 0.4 (0-1.0) k/uL Eosinophils # 0.3 (0-0.7) k/uL Basophils # 0.0 (0-0.2) k/uL Sodium (137-145) mmol/L Potassium (3.5-5.1) mmol/L Chloride (98-107) mmol/L Carbon Dioxide (22-30) mmol/L Anion Gap mmol/L BUN (7-17) mg/dL Creatinine (0.52-1.04) mg/dL Est GFR (CKD-EPI)AfAm (>60 ml/min/1.73 sqM) Est GFR (CKD-EPI)NonAf (>60 ml/min/1.73 sqM) Glucose (74-99) mg/dL Plasma Lactic Acid Jas (0.7-2.0) mmol/L Calcium (8.4-10.2) mg/dL Total Bilirubin (0.2-1.3) mg/dL AST (14-36) U/L ALT (4-34) U/L Alkaline Phosphatase (38-126) U/L Total Protein (6.3-8.2) g/dL Albumin (3.5-5.0) g/dL Lipase (23-300) U/L Urine Color Yellow Urine Appearance Clear (Clear) Urine pH 5.5 (5.0-8.0) Ur Specific Waterman 1.023 (1.001-1.035) Urine Protein Negative (Negative) Urine Glucose (UA) Negative (Negative) Urine Ketones Negative (Negative) Urine Blood Negative (Negative) Urine Nitrite Negative (Negative) Urine Bilirubin Negative (Negative) Urine Urobilinogen <2.0 (<2.0) mg/dL Ur Leukocyte Esterase Negative (Negative) Urine HCG, Qual Not Detected (Not Detectd) 07/26/21 07/26/21 Range/Units 22:12 22:12 WBC (3.8-10.6) k/uL RBC (3.80-5.40) m/uL Hgb (11.4-16.0) gm/dL Hct (34.0-46.0) % MCV (80.0-100.0) fL MCH (25.0-35.0) pg MCHC (31.0-37.0) g/dL RDW (11.5-15.5) % Plt Count (150-450) k/uL MPV Neutrophils % % Lymphocytes % % Monocytes % % Eosinophils % % Basophils % % Neutrophils # (1.3-7.7) k/uL Lymphocytes # (1.0-4.8) k/uL Monocytes # (0-1.0) k/uL Eosinophils # (0-0.7) k/uL Basophils # (0-0.2) k/uL Sodium 138 (137-145) mmol/L Potassium 3.8 (3.5-5.1) mmol/L Chloride 103 (98-107) mmol/L Carbon Dioxide 25 (22-30) mmol/L Anion Gap 10 mmol/L BUN 17 (7-17) mg/dL Creatinine 0.90 (0.52-1.04) mg/dL Est GFR (CKD-EPI)AfAm >90 (>60 ml/min/1.73 sqM) Est GFR (CKD-EPI)NonAf 86 (>60 ml/min/1.73 sqM) Glucose 98 (74-99) mg/dL Plasma Lactic Acid Jas 0.8 (0.7-2.0) mmol/L Calcium 9.7 (8.4-10.2) mg/dL Total Bilirubin 0.2 (0.2-1.3) mg/dL AST 21 (14-36) U/L ALT 13 (4-34) U/L Alkaline Phosphatase 73 (38-126) U/L Total Protein 7.3 (6.3-8.2) g/dL Albumin 4.3 (3.5-5.0) g/dL Lipase 85 (23-300) U/L Urine Color Urine Appearance (Clear) Urine pH (5.0-8.0) Ur Specific Waterman (1.001-1.035) Urine Protein (Negative) Urine Glucose (UA) (Negative) Urine Ketones (Negative) Urine Blood (Negative) Urine Nitrite (Negative) Urine Bilirubin (Negative) Urine Urobilinogen (<2.0) mg/dL Ur Leukocyte Esterase (Negative) Urine HCG, Qual (Not Detectd) - Radiology Data Radiology results: report reviewed, image reviewed CT abdomen and pelvis with contrast was obtained. Report was reviewed in its entirety. Impression by Dr. Urias shows thickened appendix. Somewhat suspicious for appendicitis. Disposition Clinical Impression: Appendicitis Disposition: ADMITTED IP TO THIS [facility] Condition: Serious Decision to Admit Reason: Admit from EC Decision Date: 07/26/21 Decision Time: 23:46
[2021-07-27] MEDS: SODIUM CHLORIDE 0.9% 1,000 ML IV SCH ×3 (00:22→20:52)
[2021-07-27 02:20] VITALS: RESP 16
[2021-07-27] MEDS: HYDROmorphone 0.5 MG/0.5 ML SYRINGE IVP PRN ×2 (02:53→07:50)
[2021-07-27] MEDS: PIPERACILLIN-TAZOBACTAM 3.375 GM in SODIUM CHLORIDE 0.9% 100 ML IVPB SCH ×3 (07:43→23:41)
[2021-07-27] MEDS ORDERED: PIPERACILLIN-TAZOBACTAM 3.375 GM in SODIUM CHLORIDE 0.9% 100 ML IVPB SCH ×3 (08:00)
--- NOTE | 2021-07-27 09:48 | P.GSHP ---
History of Present Illness H&P Date: 07/27/21 Chief Complaint: Acute appendicitis 31-year-old female presents with complaints of 2 days worth of abdominal pain. On the patient had periumbilical pain that felt like a band. Yesterday the pain became more severe and moved down to the right lower abdomen. No fev ers. She has had anorexia with nausea. No vomiting. No history of similar events in the past. Normal bowel habits. Labs are normal. CAT scan was performed which shows thickening of the appendix in the right gutter. - Review of Systems Comment: The patient denies any acute changes in vision or hearing, no dysphagia or odynophagia, no chest pain or shortness of breath, no dysuria or hematuria, no headache, no runny nose, no rectal bleeding or melena, no unexplained weight loss Past Medical History Past Medical History: Thyroid Disorder Additional Past Medical History / Comment(s): hypothyroid- not medicated History of Any Multi-Drug Resistant Organisms: None Reported Past Surgical History: Tonsillectomy Past Anesthesia/Blood Transfusion Reactions: No Reported Reaction Past Psychological History: Anxiety, Depression Additional Psychological History / Comment(s): not currently medicated Smoking Status: Never smoker Past Alcohol Use History: Occasional Past Drug Use History: None Reported - Past Family History Mother Family Medical History: No Reported History Medications and Allergies Home Medications Medication Instructions Recorded Confirmed Type Escitalopram [Lexapro] 20 mg PO DAILY 07/26/21 07/26/21 History Propranolol HCl [Propranolol HCl 60 mg PO DAILY 07/26/21 07/26/21 History ER] Allergies Allergy/AdvReac Type Severity Reaction Status Date / Time No Known Allergies Allergy Verified 07/26/21 22:09 Surgical - Exam Vital Signs Temp Pulse Resp BP Pulse Ox 98.7 F 73 2 L 101/68 98 07/26/21 19:57 07/26/21 19:57 07/26/21 19:57 07/26/21 19:57 07/26/21 19:57 Physical exam: General: Well-developed, well-nourished HEENT: Normocephalic, sclerae nonicteric Abdomen: Right lower quadrant tenderness, nondistended Extremities: No edema Neuro: Alert and oriented Results - Labs 07/26/21 22:12 07/26/21 22:12 Diabetes panel 07/26/21 Range/Units 22:12 Sodium 138 (137-145) mmol/L Potassium 3.8 (3.5-5.1) mmol/L Chloride 103 (98-107) mmol/L Carbon Dioxide 25 (22-30) mmol/L BUN 17 (7-17) mg/dL Creatinine 0.90 (0.52-1.04) mg/dL Glucose 98 (74-99) mg/dL Calcium 9.7 (8.4-10.2) mg/dL AST 21 (14-36) U/L ALT 13 (4-34) U/L Alkaline Phosphatase 73 (38-126) U/L Total Protein 7.3 (6.3-8.2) g/dL Albumin 4.3 (3.5-5.0) g/dL Calcium panel 07/26/21 Range/Units 22:12 Calcium 9.7 (8.4-10.2) mg/dL Albumin 4.3 (3.5-5.0) g/dL Pituitary panel 07/26/21 Range/Units 22:12 Sodium 138 (137-145) mmol/L Potassium 3.8 (3.5-5.1) mmol/L Chloride 103 (98-107) mmol/L Carbon Dioxide 25 (22-30) mmol/L BUN 17 (7-17) mg/dL Creatinine 0.90 (0.52-1.04) mg/dL Glucose 98 (74-99) mg/dL Calcium 9.7 (8.4-10.2) mg/dL Adrenal panel 07/26/21 Range/Units 22:12 Sodium 138 (137-145) mmol/L Potassium 3.8 (3.5-5.1) mmol/L Chloride 103 (98-107) mmol/L Carbon Dioxide 25 (22-30) mmol/L BUN 17 (7-17) mg/dL Creatinine 0.90 (0.52-1.04) mg/dL Glucose 98 (74-99) mg/dL Calcium 9.7 (8.4-10.2) mg/dL Total Bilirubin 0.2 (0.2-1.3) mg/dL AST 21 (14-36) U/L ALT 13 (4-34) U/L Alkaline Phosphatase 73 (38-126) U/L Total Protein 7.3 (6.3-8.2) g/dL Albumin 4.3 (3.5-5.0) g/dL Assessment and Plan (1) Appendicitis Narrative/Plan: 31-year-old female with history physical exam and CAT scan findings suggestive of early appendicitis. Continue antibiotics. Options reviewed. We'll proceed with laparoscopic, possible open appendectomy at this time. Risks of bleeding, infection, conversion to an open procedure, abscess, hernia, bladder bowel and ureteral injury reviewed. She understands wished to proceed. Current Visit: Yes Status: Acute Code(s): K37 - UNSPECIFIED APPENDICITIS SNOMED Code(s): 43707798
[2021-07-27] MEDS ORDERED: PROPOFOL 10 MG/ML 20 ML VIAL IV ONE (12:57)
[2021-07-27] MEDS ORDERED: DEXAMETHASONE SOD PHOSPHATE 10 MG/ML 1 ML VIAL ONE (12:57)
[2021-07-27] MEDS ORDERED: LIDOCAINE 1% INJ 10MG/ML (20 ML MDV) ONE (12:57)
[2021-07-27] MEDS ORDERED: ROCURONIUM 10 MG/ML (5 ML VIAL) IV ONE (12:57)
[2021-07-27] MEDS ORDERED: ONDANSETRON 4 MG/2 ML VIAL ONE (12:57)
[2021-07-27] MEDS ORDERED: LACTATED RINGERS 1,000 ML IV ONE ×2 (12:57→13:27)
[2021-07-27] MEDS ORDERED: KETOROLAC 15 MG/ML 1 ML VIAL ONE (12:57)
[2021-07-27] MEDS ORDERED: fentaNYL (PF) 50 MCG/ML 2 ML AMP ONE (12:57)
[2021-07-27] MEDS ORDERED: MIDAZOLAM 2 MG/2 ML VIAL ONE (12:57)
[2021-07-27] MEDS ORDERED: SODIUM CHLORIDE 0.9% 100 ML with ceFAZolin 2 GM IV ONE ×2 (13:09)
[2021-07-27] MEDS ORDERED: BUPIVACAIN-EPI 0.25%-1:200,000 30 ML VIAL SQ ONE (13:14)
[2021-07-27] MEDS ORDERED: traMADol 50 MG TAB PO PRN (13:37)
[2021-07-27] MEDS ORDERED: ACETAMINOPHEN TAB 325 MG TAB PO PRN (13:37)
--- NOTE | 2021-07-27 13:39 | P.OP ---
Date of Procedure: 07/27/21 Procedure(s) Performed: PREOPERATIVE DIAGNOSIS: Acute appendicitis POSTOPERATIVE DIAGNOSIS: Same PROCEDURE: Laparoscopic appendectomy SURGEON: [place] EBL: 2 mL ANESTHESIA: General COMPLICATIONS: None OPERATIVE PROCEDURE: The patient was brought and placed on the operating table in the supine position. The patient was placed under general anesthesia. The abdomen was prepped and draped in the usual sterile fashion. A small vertical infraumbilical incision was made. The fascia was retracted anteriorly with Rosi forceps. The Veress needle was advanced into the peritoneal cavity. The saline drop test was normal. Insufflation took place to 15 mmHg. A 5 mm trocar was then placed. An additional 5 mm suprapubic trocar was placed under direct visualization as well as a 12 mm left lower quadrant trocar under direct visualization. The appendix was inspected. It was distended and mildly inflamed. The mesoappendix was dissected. The base of the appendix was divided using a linear 45 mm intestinal stapler. The mesentery itself was divided using the LigaSure. The area was then irrigated. No further purulence or bleeding was seen. The appendix was brought out of the peritoneal cavity through the left lower quadrant trocar site within the trocar itself. The fascia at the 12 mm site was closed using a Deonte-Dash 0 Vicryl stitch. The skin at all 3 sites was closed using 4-0 Monocryl sutures. Skin glue was then applied. DISPOSITION: Stable to recovery room
[2021-07-27] MEDS ORDERED: HYDROmorphone 0.5 MG/0.5 ML SYRINGE IVP ONE ×4 (13:46→14:12)
[2021-07-27] MEDS: HEPARIN SODIUM,PORCINE/PF 5,000 UNIT/0.5 ML SYRINGE SQ SCH ×2 (16:39→23:41)
[2021-07-27] MEDS: HYDROcodone/APAP 5-325MG 1 EACH TAB PO PRN ×2 (16:45→23:52)
[2021-07-28 01:50] VITALS: BP 96/59
[2021-07-28 08:13] VITALS: PULSE 75; TEMP 97.8
[2021-07-28] MEDS: PIPERACILLIN-TAZOBACTAM 3.375 GM in SODIUM CHLORIDE 0.9% 100 ML IVPB SCH (08:16)
[2021-07-28] MEDS: HYDROcodone/APAP 5-325MG 1 EACH TAB PO PRN (08:16)
[2021-07-28] MEDS: HEPARIN SODIUM,PORCINE/PF 5,000 UNIT/0.5 ML SYRINGE SQ SCH (08:16)
--- NOTE | 2021-07-28 09:54 | P.DS ---
Providers Date of admission: 07/27/21 00:42 Expected date of discharge: 07/28/21 Attending physician: Michi Barahona Primary care physician: Morelia Medeiros - Discharge Diagnosis(es) (1) Appendicitis Patient was admitted through the ER with abdominal pain. CAT scan showed mild appendicitis. Underwent laparoscopic appendectomy yesterday. Doing better today. Complaining of mild incisional pain. Tolerating diet. We'll discharge. Follow-up one week. Status: Acute Patient Condition at Discharge: Good Plan - Discharge Summary Discharge Rx Participant: No New Discharge Prescriptions: New traMADol HCl [Ultram] 50 mg PO Q6H PRN #6 tab PRN Reason: Pain No Action Escitalopram [Lexapro] 20 mg PO DAILY Propranolol HCl [Propranolol HCl ER] 60 mg PO DAILY Discharge Medication List Escitalopram [Lexapro] 20 mg PO DAILY 07/26/21 [History] Propranolol HCl [Propranolol HCl ER] 60 mg PO DAILY 07/26/21 [History] traMADol HCl [Ultram] 50 mg PO Q6H PRN #6 tab 07/27/21 [Rx] Follow up Appointment(s)/Referral(s): Michi Barahona MD [Medical Doctor] - 1 Week Morelia Medeiros MD [Primary Care Provider] - 1-2 days Patient Instructions/Handouts: Laparoscopic Appendectomy (DC) Activity/Diet/Wound Care/Special Instructions: Take pain medication as prescribed. Do not drive while taking Ultram. Monitor incision sites for signs of infection. Follow up with Dr Barahona as directed. Call Dr Barahona's office with any questions. Return to ER with any emergent needs. Discharge Disposition: HOME SELF-CARE
== END 2021-07-28 09:28 | disposition home or self-care (01) ==
LOC: EC 19:09 → 6PED 07-27 00:42
PROVIDERS: ADMIT Surgery; ATTEND Surgery
DX: K35.80 Unspecified acute appendicitis (principal); G43.909 Migraine, unspecified, not intractable, without status migrainosus; E03.9 Hypothyroidism, unspecified; F41.9 Anxiety disorder, unspecified; F32.9 Major depressive disorder, single episode, unspecified; Z20.822 Contact with and (suspected) exposure to COVID-19; Z79.899 Other long term (current) drug therapy; Z98.890 Other specified postprocedural states
CPT/HCPCS: 44970; 96376 ×2; 96374; 96375; 99285; 36415; 88304; 80053; 83605; 83690; 85025; 81003; 81025; 87040; 87635; 74018; 74177; G0378 ×2; J2543 ×2; J2250; J1100; J0690; J2405 ×2; J2001; J3010; J1885; J2704; J1170 ×2; Q9967; J1644

== ENCOUNTER → 2022-02-12 | Outpatient (CLI) | payer BC ==
[2022-02-12 18:43] LABS: HCT 37.3 % (37.2-46.3); HGB 12.1 g/dL (12.0-15.0); MCH 27.6 pg (27.0-32.0); MCHC 32.4 g/dL (32.0-37.0); NRBC Per 100 WBC 0 /100 WBCS (0.0-0.0); Platelet Count 207 X 10*3/uL (140-440); RBC 4.39 X 10*6/uL (4.10-5.20); RDW 14.7 % (11.5-14.5); WBC 7.84 X 10*3/uL (4.50-10.00)
== END | disposition home or self-care (01) ==
LOC: LABWHC1 10:56
PROVIDERS: ATTEND Obstetrics & Gynecology
DX: Z34.82 Encounter for supervision of other normal pregnancy, second trimester (principal); Z3A.00 Weeks of gestation of pregnancy not specified
CPT/HCPCS: 36415; 82950; 85027

== ENCOUNTER 2022-05-29 14:00 | Inpatient (IN) | payer BC ==
[2022-05-30] MEDS ORDERED: METHYLERGONOVINE 0.2 MG/ML 1 ML AMP IM PRN (06:23)
[2022-05-30] MEDS ORDERED: AMPICILLIN 2,000 MG in SODIUM CHLORIDE 0.9% 100 ML IVPB STA (06:23)
[2022-05-30] MEDS ORDERED: CARBOPROST TROMETHAMINE 250 MCG/ML 1 ML AMP IM PRN (06:23)
[2022-05-30] MEDS ORDERED: TERBUTALINE 1 MG/ML VIAL SQ PRN (06:23)
[2022-05-30] MEDS ORDERED: LIDOCAINE 0.5% (PF) 5 MG/ML (50 ML SDV) SQ PRN (06:23)
[2022-05-30] MEDS ORDERED: OXYTOCIN 10 UNIT/ML 1 ML VIAL IM PRN (06:23)
[2022-05-30] MEDS ORDERED: OXYTOCIN 30 UNITS/500 ML NS 30 UNIT in SALINE 1 500ML.BAG IV SCH ×2 (06:30→17:15)
[2022-05-30] MEDS: LACTATED RINGERS 1,000 ML IV SCH ×2 (06:48→10:01)
[2022-05-30 06:54] LABS: Basophils % (A) 0 %; Eosinophils # (A) 0.1 k/uL (0-0.7); Eosinophils % (A) 1 %; HCT 37.7 % (34.0-46.0); HGB 12.4 gm/dL (11.4-16.0); Lymphocytes # (A) 1.7 k/uL (1.0-4.8); Lymphocytes % (A) 17 %; MCHC 32.8 g/dL (31.0-37.0); MCV 82.3 fL (80.0-100.0); Mean Platelet Volume 9.5; Monocytes # (A) 0.5 k/uL (0-1.0); Monocytes % (A) 5 %; Neutrophils # (A) 7.5 k/uL (1.3-7.7); Neutrophils % (A) 75 %; Platelet Count 174 k/uL (150-450); RBC 4.57 m/uL (3.80-5.40); RDW 14.9 % (11.5-15.5); WBC 10.1 k/uL (3.8-10.6)
--- NOTE | 2022-05-30 07:55 | P.HPOB ---
History of Present Illness H&P Date: 05/30/22 Chief Complaint: induction of labor 32 year old G 3 P2 presents at 40 weeks and 1 day for induction of labor. Her cervix is 4 cm dilated, 70% effaced, and -1 station. She is seth every 2-4 minutes. heart tones are 135 with moderate variability and reactive. Review of Systems All systems: negative Constitutional: Denies chills, Denies fever Eyes: denies blurred vision, denies pain Ears, nose, mouth and throat: Denies headache, Denies sore throat Cardiovascular: Denies chest pain, Denies shortness of breath Respiratory: Denies cough Gastrointestinal: Denies abdominal pain, Denies diarrhea, Denies nausea, Denies vomiting Genitourinary: Denies dysuria, Denies hematuria Musculoskeletal: Denies myalgias Integumentary: Denies pruritus, Denies rash Neurological: Denies numbness, Denies weakness Psychiatric: Denies anxiety, Denies depression Endocrine: Denies fatigue, Denies weight change Past Medical History Past Medical History: Thyroid Disorder Additional Past Medical History / Comment(s): hypothyroid- not medicated History of Any Multi-Drug Resistant Organisms: None Reported Past Surgical History: Tonsillectomy Past Anesthesia/Blood Transfusion Reactions: No Reported Reaction Past Psychological History: Anxiety, Depression Smoking Status: Never smoker Past Alcohol Use History: Occasional Past Drug Use History: None Reported - Past Family History Mother Family Medical History: No Reported History Medications and Allergies Home Medications Medication Instructions Recorded Confirmed Type Escitalopram [Lexapro] 20 mg PO DAILY 07/26/21 05/30/22 History Vit No.179/Iron/Folic 1 tab PO DAILY 05/30/22 05/30/22 History [ Tablet] Allergies Allergy/AdvReac Type Severity Reaction Status Date / Time No Known Allergies Allergy Verified 05/30/22 06:21 Exam Osteopathic Statement: *. No significant issues noted on an osteopathic structural exam other than those noted in the History and Physical/Consult. Vital Signs Temp Pulse Resp BP 05/30/22 07:06 97.6 F 77 16 116/74 Intake and Output 05/29/22 05/30/22 05/30/22 22:59 06:59 14:59 Other: Weight 92.079 kg 92.079 kg Heart: Regular rate and rhythm Lungs: Clear to auscultation bilaterally Abdomen: Soft, nontender Extremities: Negative Homans sign Results Result Diagrams: 05/30/22 06:35 Assessment and Plan (1) Encounter for induction of labor Current Visit: Yes Status: Acute Code(s): Z34.90 - ENCNTR FOR SUPRVSN OF NORMAL , UNSP, UNSP TRIMESTER SNOMED Code(s): 290340121 Plan: 1. Induction of labor with amniotomy and Pitocin 2. Anticipate normal vaginal delivery
[2022-05-30] MEDS ORDERED: SODIUM CHLORIDE 0.9% 100 ML BAG ONE (10:14)
[2022-05-30] MEDS ORDERED: ROPIVACAINE 5MG/ML 20ML VIAL ONE (10:14)
[2022-05-30] MEDS ORDERED: fentaNYL (PF) 50 MCG/ML 5 ML AMP ONE (10:14)
[2022-05-30] MEDS: AMPICILLIN 1,000 MG in SODIUM CHLORIDE 0.9% 50 ML IVPB SCH ×2 (11:30→15:31)
[2022-05-30] MEDS ORDERED: SIMETHICONE 80 MG CHEWABLE PO PRN (17:02)
[2022-05-30] MEDS ORDERED: diphenhydrAMINE 25 MG CAP PO PRN (17:02)
[2022-05-30] MEDS ORDERED: diphenhydrAMINE 50 MG CAP PO PRN (17:02)
[2022-05-30] MEDS ORDERED: HYDROCORTISONE 2.5% RECTAL CREAM 30 GM TUBE RECTAL PRN (17:02)
[2022-05-30] MEDS ORDERED: ZOLPIDEM 5 MG TAB PO PRN (17:02)
[2022-05-30] MEDS ORDERED: diphenhydrAMINE 50 MG/ML 1 ML VIAL IVP PRN ×2 (17:02)
[2022-05-30] MEDS ORDERED: BENZOCAINE/MENTHOL SPRAY 1 GM/SPRAY AEROSOL TOPICAL PRN (17:02)
[2022-05-30] MEDS ORDERED: LANOLIN CREAM 5 GM TUBE TOPICAL PRN (17:02)
[2022-05-30] MEDS: IBUPROFEN 600 MG TAB PO PRN ×2 (17:15→23:42)
[2022-05-30] MEDS: ACETAMINOPHEN TAB 325 MG TAB PO PRN (20:28)
[2022-05-30] MEDS: SENNOSIDES-DOCUSATE SODIUM 1 EACH TAB PO SCH (20:28)
[2022-05-31] MEDS: ACETAMINOPHEN TAB 325 MG TAB PO PRN ×4 (02:26→23:42)
[2022-05-31] MEDS: IBUPROFEN 600 MG TAB PO PRN ×3 (05:56→19:40)
[2022-05-31 07:41] LABS: Basophils % (A) 0 %; Eosinophils # (A) 0.1 k/uL (0-0.7); Eosinophils % (A) 0 %; HCT 33.5 % (34.0-46.0); HGB 11.1 gm/dL (11.4-16.0); Lymphocytes # (A) 1.9 k/uL (1.0-4.8); Lymphocytes % (A) 13 %; MCH 27.6 pg (25.0-35.0); MCHC 33.2 g/dL (31.0-37.0); Mean Platelet Volume 10.2; Monocytes # (A) 0.8 k/uL (0-1.0); Monocytes % (A) 5 %; Neutrophils # (A) 12.2 k/uL (1.3-7.7); Neutrophils % (A) 80 %; Platelet Count 154 k/uL (150-450); RBC 4.04 m/uL (3.80-5.40); RDW 15.1 % (11.5-15.5); WBC 15.3 k/uL (3.8-10.6)
[2022-05-31 07:59] VITALS: RESP 16
[2022-05-31] MEDS: SENNOSIDES-DOCUSATE SODIUM 1 EACH TAB PO SCH ×2 (09:29→19:40)
--- NOTE | 2022-05-31 10:27 | P.DS ---
Providers Date of admission: 05/30/22 06:08 Expected date of discharge: 06/01/22 Attending physician: Faina aDley Primary care physician: Stated None - Discharge Diagnosis(es) (1) Encounter for induction of labor Current Visit: Yes Status: Resolved (2) Normal vaginal delivery Current Visit: No Status: Acute Hospital Course: Patient presented for induction of labor. She underwent a normal vaginal delivery. Denies nausea, vomiting, chest pain, shortness of breath or any calf pain. she is doing well. Ambulating and voiding without difficulty. She will be discharged home day #2 in stable condition to follow-up with me in 6 weeks. Plan - Discharge Summary New Discharge Prescriptions: New Ibuprofen [Motrin] 600 mg PO Q6HR PRN #30 tab PRN Reason: Mild Pain (Scale 1 To 3) No Action Escitalopram [Lexapro] 20 mg PO DAILY Vit No.179/Iron/Folic [ Tablet] 1 tab PO DAILY Discharge Medication List Escitalopram [Lexapro] 20 mg PO DAILY 07/26/21 [History] Vit No.179/Iron/Folic [ Tablet] 1 tab PO DAILY 05/30/22 [History] Ibuprofen [Motrin] 600 mg PO Q6HR PRN #30 tab 05/31/22 [Rx] Follow up Appointment(s)/Referral(s): Faina Daley DO [Doctor of Osteopathic Medicine] - 6 Weeks Discharge Disposition: HOME SELF-CARE
--- NOTE | 2022-05-31 10:39 | P.PROBDLV ---
Vaginal Delivery Note - . Vaginal Delivery Note: 32 year old G 3 P2 presents at 40 weeks and 1 day for induction of labor. Her cervix is 4 cm dilated, 70% effaced, and -1 station. She is seth every 2-4 minutes. heart tones are 135 with moderate variability and reactive. Amniotomy was performed at 7:16 AM and thin meconium fluid was seen. She progressed slowly throughout the day and was uncomfortable she did get an epidural. Her cervix was completely dilated at 1613. She pushed and when she was I was called to the room. She delivered a viable female infant over intact perineum under epidural anesthesia at 1647. Head delivered OA, tight nuchal cord clamped and cut at the perineum, anterior shoulder delivered gentle downward guidance followed by posterior shoulder and rest of body. Nose and mouth bulb suctioned, cord clamped and cut, placed mother's abdomen. Apgars at 1 minute was 5, and 5 minutes was 7 and at 10 minutes was 8. Weight 8 lbs. 1 oz. Placenta delivered spontaneously, intact with three-vessel cord at 1650. Vagina, cervix, and perineum were inspected. First-degree midline laceration was repaired with 3-0 Vicryl. Estimated blood loss 200 mL.
[2022-06-01] MEDS: IBUPROFEN 600 MG TAB PO PRN ×2 (09:07→18:36)
[2022-06-01] MEDS: SENNOSIDES-DOCUSATE SODIUM 1 EACH TAB PO SCH (09:09)
[2022-06-01] MEDS: ACETAMINOPHEN TAB 325 MG TAB PO PRN (13:05)
[2022-06-01 17:16] VITALS: BP 112/72; PULSE 73; TEMP 98.4
== END 2022-06-01 18:42 | disposition home or self-care (01) | DRG 807 ==
LOC: 4FBP 05-30 06:08
PROVIDERS: ADMIT Obstetrics & Gynecology; ATTEND Obstetrics & Gynecology
PROC: 10E0XZZ Delivery of Products of Conception, External Approach (ICD-10-PCS; principal; 2022-05-30)
PROC: 0HQ9XZZ Repair Perineum Skin, External Approach (ICD-10-PCS; 2022-05-30)
PROC: 10907ZC Drainage of Amniotic Fluid, Therapeutic from Products of Conception, Via Natural or Artificial Opening (ICD-10-PCS; 2022-05-30)
PROC: 3E033VJ Introduction of Other Hormone into Peripheral Vein, Percutaneous Approach (ICD-10-PCS; 2022-05-30)
PROC: 4A0HXCZ Measurement of Products of Conception, Cardiac Rate, External Approach (ICD-10-PCS; 2022-05-30)
DX: O69.1XX0 Labor and delivery complicated by cord around neck, with compression, not applicable or unspecified (principal); Z37.0 Single live birth; O70.0 First degree perineal laceration during delivery; O77.0 Labor and delivery complicated by meconium in amniotic fluid; O48.0 Post-term pregnancy; E03.9 Hypothyroidism, unspecified; F32.A Depression, unspecified; F41.9 Anxiety disorder, unspecified; O99.284 Endocrine, nutritional and metabolic diseases complicating childbirth; O99.344 Other mental disorders complicating childbirth; Z3A.40 40 weeks gestation of pregnancy; Z79.899 Other long term (current) drug therapy
CPT/HCPCS: 85025; 86850; 86900; 86901

== ENCOUNTER → 2023-08-04 | Outpatient (CLI) | payer BC ==
--- NOTE | 2023-08-04 15:37 | US ---
EXAMINATION TYPE: US thyroid st tissue head/neck DATE OF EXAM: 08/04/2023 COMPARISON: Ultrasound thyroid 07/04/2020 CLINICAL INDICATION: Female, 33 years old with history of E04.9 NONTOXIC GOITER, UNSPECIFIED; f/u, no t on meds, no issues GLAND SIZE: Right Lobe: 4.7 x 1.5 x 1.4 cm Overall Parenchyma: homogeneous Left Lobe: 4.4 x 1.3 x 1.2 cm Overall Parenchyma: homogeneous Isthmus Thickness: 0.2 cm NODULES RIGHT: # of nodules measured on right: 0 LEFT: # of nodules measured on left: Multiple images of left inferior pole and no nodule was note d on today's exam ISTHMUS: # of nodules measured in the isthmus: 0 Bilateral neck scanned, no evidence of lymphadenopathy. IMPRESSION: Unremarkable thyroid ultrasound without discrete nodule.
== END | disposition home or self-care (01) ==
LOC: RADUSWWP 14:47
PROVIDERS: ATTEND Family Medicine
DX: E04.9 Nontoxic goiter, unspecified (principal); E04.1 Nontoxic single thyroid nodule; K76.9 Liver disease, unspecified
CPT/HCPCS: 76536